=== PATIENT | female | born 1970 | race African-American/Black ===

== ENCOUNTER 2023-08-31 20:15 | Emergency (ER) | payer SELFPAY ==
[~2023-08-31] VITALS: Ht 172.7 cm; Wt 73.0 kg
[2023-08-31 20:23] VITALS: TEMP 97.8; O2SAT 100
[2023-08-31] MEDS: ONDANSETRON 4MG ODT PO ONE (20:34)
[2023-08-31 21:28] LABS: CLARITY URINE CLEAR (CLEAR); COLOR URINE YELLOW (YELLOW); GLUCOSE URINE TRACE (NEGATIVE); KETONES URINE TRACE (NEGATIVE); LEUKOCYTE ESTERASE URINE NEGATIVE (NEGATIVE); NITRITE URINE NEGATIVE (NEGATIVE); OCCULT BLOOD URINE TRACE (NEGATIVE); PROTEIN URINE NEGATIVE (NEGATIVE); UROBILINOGEN URINE 0.2 E.U./dL (0.2-1.0)
[2023-08-31] MEDS ORDERED: FAMOTIDINE 20MG TABLET PO ONE (21:30)
[2023-08-31 21:34] LABS: HEMATOCRIT. 47.8 % (36.0-48.0); HEMOGLOBIN. 15.9 g/dL (12.0-16.0); MEAN CORPUSCULAR HEMOGLOBIN 32.6 pg (28.0-32.0); MEAN CORPUSCULAR HGB CONC 33.2 g/dL (31.0-37.0); MEAN PLATELET VOLUME 7.9 fl (7.4-10.4); PLATELET 284 x1000/uL (130-400); RED BLOOD CELL COUNT 4.88 mill/uL (4.2-5.4); RED CELL DISTRIBUTION WIDTH 13.4 % (11.6-14.6); WHITE BLOOD COUNT 10.8 x1000/uL (4.5-11.0)
[2023-08-31 21:35] LABS: DIFFERENTIAL COMMENT 1
[2023-08-31 21:43] LABS: BACTERIA URINE 1+; RBC URINE 0-2 /hpf (0-2); SQUAMOUS EPITHELIAL CELL URINE FEW /lpf (RARE/1+); WBC URINE 0-2 /hpf (0-2)
[2023-08-31 21:44] LABS: CARBON DIOXIDE 24 mEq/L (21-32); CHLORIDE 104 mEq/L (98-107); POTASSIUM 3.4 mEq/L (3.5-5.1); SODIUM 138 mEq/L (136-145)
[2023-08-31 21:45] LABS: CALCIUM 9.6 mg/dL (8.7-10.4)
[2023-08-31 21:49] LABS: CREATININE 0.6 mg/dL (0.6-1.0)
[2023-08-31 21:50] LABS: GLUCOSE 177 mg/dL (70-105); UREA NITROGEN BLOOD 12 mg/dL (9-23)
[2023-08-31 21:52] LABS: ALANINE AMINOTRANSFERASE 18 IU/L (10-49); ALBUMIN 4.9 g/dL (3.2-4.8); ASPARTATE AMINOTRANSFERASE 24 IU/L (<34); BILIRUBIN DIRECT 0.3 mg/dL (<=3.0); PROTEIN TOTAL 8.8 g/dL (6.0-8.3)
[2023-08-31 22:47] LABS: ATYPICAL LYMPHOCYTES 3; GIANT PLATELETS FEW; PLATELET ESTIMATE NORMAL
[2023-08-31 22:48] LABS: OVALOCYTES 1+; TEAR DROP CELLS 2+
[2023-08-31] MEDS ORDERED: TOPUD PO (23:01)
[2023-08-31] MEDS ORDERED: FAMO-135 MT (23:01)
[2023-08-31] MEDS ORDERED: LOPE2CAP MT (23:01)
[2023-08-31] MEDS ORDERED: ONDA4TAB50 MT (23:01)
[2023-08-31] MEDS: POTASSIUM CHLORIDE 20MEQ TABLET SR PO ONE (23:14)
[2023-08-31] MEDS: FAMOTIDINE 20MG TABLET PO NR (23:14)
[2023-08-31 23:27] VITALS: BP 139/77; PULSE 89; RESP 17
== END 2023-08-31 23:29 | disposition home or self-care (01) ==
LOC: ER 20:15
DX: K52.9 Noninfective gastroenteritis and colitis, unspecified (principal); Z79.899 Other long term (current) drug therapy
CPT/HCPCS: 99284; 80076; 80048; 81003; 81025; 85025; 36415; 93005; Q0162